=== PATIENT | female | born 1975 | race Two or more races ===

== ENCOUNTER → 2016-09-25 | Outpatient (CLI) | payer OTHER ==
--- NOTE | 2016-09-25 13:50 | RADRPT ---
PROCEDURE: Right knee radiographs. CLINICAL INDICATION: Right knee pain. TECHNIQUE: Four views. Weight bearing. Frontal, lateral, oblique, and patellar view. COMPARISON: No prior studies are available for comparison. FINDINGS: There is no fracture or dislocation. The soft tissues are normal. There are degenerative changes with osteophytes arising from all 3 joint compartment margins. There is medial joint compartment narrowing. There is no lytic or blastic lesion. There is no radiopaque foreign body. IMPRESSION: 1. Moderate degenerative changes of the right knee. 2. No acute abnormality. RPTAT: QQ .Darren Mera MD, MD Date Time Electronically viewed and signed by .Darren Mera MD, MD on 09/25/2016 13:50 .R/
== END | disposition home or self-care (01) ==
LOC: HKI 09:18
PROVIDERS: ATTEND Orthopaedic Surgery
DX: M17.0 Bilateral primary osteoarthritis of knee (principal); E66.01 Morbid (severe) obesity due to excess calories; I10 Essential (primary) hypertension; Z88.0 Allergy status to penicillin; Z88.2 Allergy status to sulfonamides
CPT/HCPCS: 73564; Z7500; G0463

== ENCOUNTER 2017-12-04 16:28 | Emergency (ER) | END 2017-12-04 18:48 | disposition home or self-care (01) ==